=== PATIENT | male | born 1950 | race Caucasian/White ===

== ENCOUNTER → 2021-12-06 | Outpatient (CLI) | payer MEDICARE, BC, SELFPAY ==
--- NOTE | 2021-12-06 08:41 | STRESSREP_ITS ---
Stress Test Report Date: Procedure: Exercise tolerance test/imaging study Indications: Shortness of breath/dyspnea on exertion; chest pain; CAD Consent: Per the patient Procedure: The patient exercised on a Corby protocol for 6 minutes and 56 seconds completing Stage II and 56 seconds of Stage III achieving a peak heart rate of 200 bpm (135% predicted maximal heart rate) with a peak blood pressure 164/76 mmHg and a peak MET capacity of 9 METs. The baseline ECG demonstrated normal sinus rhythm. The peak exercise ECG demonstrated somatic/motion artifact with beat to beat nonspecific ST segment variability. There was an occasional PAC during exercise and a slightly irregular narrow complex tachycardia at peak recovery with subsequent spontaneous slowing appearing compatible with an underlying ectopic atrial rhythm/tachycardia with subsequent return to sinus rhythm with an occasional PVC. The functional capacity was considered good. There was no complaint of chest discomfort during exercise or recovery. The examination was discontinued secondary to dyspnea. Impression: 1. Technically adequate (percent predicted maximal heart rate greater than 85%) exercise tolerance test 2. Peak exercise ECG with somatic/motion artifact with beat to beat nonspecific ST segment variability 3. There was an occasional PAC during exercise and a slightly irregular narrow complex tachycardia peak recovery with subsequent spontaneous slowing appearing compatible with an underlying ectopic atrial rhythm/tachycardia with subsequent return to sinus rhythm with an occasional PVC 4. Nuclear images pending Myocardial perfusion imaging study: Technique: The patient was injected with 11.9 mCi of technetium 99m Cardiolite and subsequently rest SPECT Cardiolite nuclear imaging was obtained in the horizontal long, vertical long, and short axis views. The patient exercised on a Corby protocol for 6 minutes and 56 seconds completing Stage II and 56 seconds of Stage III achieving a peak heart rate of 200 bpm (135% predicted maximal heart rate) with a peak blood pressure 164/76 mmHg and a peak MET capacity of 9 METs. The patient was injected with 34.3 mCi of technetium 99m Cardiolite and subsequently stress SPECT Cardiolite nuclear imaging was obtained in the horizontal long, vertical long, and short axis views. A gated Cardiolite study at peak stress was obtained. Interpretation: Rest and stress SPECT Cardiolite nuclear imaging status post realignment, normalization, and attenuation correction, demonstrates an element of body motion during image acquisition and on the preattenuation correction images the appearance of relative uniform tracer uptake/myocardial perfusion. On the post attenuation correction images at rest there is appearance of a small area of diminished myocardial perfusion/tracer uptake in the distal anterior segments which appears to improve/normalize following stress. There is end systolic thickening and brightening. The gated Cardiolite study demonstrates myocardial thickening and inward wall motion. The reported LVEF is 73%. Impression: 1. Rest and stress SPECT Cardiolite nuclear imaging demonstrate the appearance of a small area of diminished myocardial perfusion/tracer uptake at rest which appears to improve/normalize following stress appearing compatible with an element of shifting soft tissue attenuation/artifact with no myocardial perfusion changes considered diagnostic for associated stress-induced myocardial ischemia. 2. The gated Cardiolite study reports an LVEF of 73%. This note was generated with [employer] software. It may contain incorrect words, spelling, and punctuation that were not noted in checking the note before signing.
== END | disposition home or self-care (01) ==
LOC: CVS 06:34
PROVIDERS: PCP Family Medicine; Referring Provider Family Medicine; Visit Provider Family Medicine
DX: R06.02 Shortness of breath (principal); R07.9 Chest pain, unspecified; I25.84 Coronary atherosclerosis due to calcified coronary lesion
CPT/HCPCS: 78452; 93017; A9500; A4216

== ENCOUNTER 2023-03-06 14:05 | Emergency (ER) | payer MEDICARE, BC, SELFPAY ==
[2023-03-06 14:08] VITALS: BP 171/98; PULSE 111; RESP 14; TEMP 36.8; O2SAT 97; BMI 26.0
--- NOTE | 2023-03-06 14:31 | EX.ED.GENINJ ---
HPI History of Present Illness Chief Complaint: Laceration Detail of Chief Complaint: Laceration occipital region due to fall Informant: patient Onset/Context/Timing Onset: Hours Mechanism/Context: Fall Quality of Pain: - (None) Location: Occiput Current Severity: Gone Maximum Severity: Mild Worsened by: Initial injury Relieved by: Not applicable Associated Symptoms Associated Symptoms: Negative for Parasthesias, Weakness, Loss of function, Inability to ambulate, Loss of consciousness or Amnesia Narrative Narrative: Patient is a 72-year-old male who was helping his elderly neighbor blow leaves. He lost his balance. He rolled down a hill and hit his head on a rock. He denies loss of conscious. He is not amnestic. He was not dazed. He is on no antithrombotic or anticoagulant. He denies double vision, blurred vision or loss of vision. He denies neck pain. He denies paresthesia, anesthesia or motor weakness. He denies cardiac or respiratory symptoms. He denies nausea or vomiting. Last tetanus was 2018. Tetanus Immunization: 5-10 years Prior similar symptoms: No Recent Illness/Hospitalization: No PFSH PFSH Home Medications ascorbic acid (vitamin C) 500 mg tablet (Vitamin C) 500 mg PO DAILY@0800 10/22/15 [History Last Taken 02/11/16 07:00] cholecalciferol (vitamin D3) 25 mcg (1,000 unit) tablet (Vitamin D3) 1,000 unit PO DAILY 10/22/15 [History Last Taken 02/11/16 07:00] loratadine 10 mg tablet (Allergy Relief (loratadine)) 10 mg PO DAILY PRN PRN Allergies 10/22/15 [History Last Taken 12/23/15] melatonin 10 mg sublingual tablet 10 mg PO QHS 10/22/15 [History Last Taken 12/23/15] luqclsog-jci-brpyv acid 0.4 mg-lycopene 300 mcg-lutein 250 mcg tablet (Centrum Silver) 1 ea PO DAILY 10/22/15 [History Last Taken 02/11/16 07:00] ondansetron HCl 8 mg tablet 8 mg PO Q8H PRN PRN Nausea ##20 10/26/15 [Rx Last Taken 10/29/15] acetaminophen 325 mg tablet (Tylenol) 650 mg (2 x 325 mg) PO Q6H PRN PRN Mild Pain (scale 0-3)/T>100.7 ##0 12/07/15 [Rx Last Taken Unknown] atorvastatin 20 mg tablet 20 mg PO QHS ##0 12/07/15 [Rx Last Taken 12/23/15] bisacodyl 5 mg tablet,delayed release 10 mg (2 x 5 mg) PO DAILY PRN PRN Constipation ##0 12/07/15 [Rx Last Taken Unknown] hydrocortisone 2.5 % topical cream with perineal applicator (Proctozone-HC) 1 applic RECTAL BID PRN PRN Pain ##0 12/07/15 [Rx Last Taken Unknown] niacin 500 mg tablet,extended release 500 mg PO QHS ##0 12/07/15 [Rx Last Taken 12/23/15] sennosides 8.6 mg tablet (Latonya-jamia) 1 tab PO BID ##0 01/25/16 [Rx Last Taken Unknown] omeprazole 20 mg capsule,delayed release 20 mg PO DAILY PRN PRN acid reflux 02/11/16 [History Last Taken Unknown] Allergy/AdvReac Type Severity Reaction Status Date / Time venom-wasp protein Allergy Severe Anaphylaxis Verified 03/06/23 14:08 Social History (Updated 03/06/23 @ 14:[address] Rizwan Sultana MD) household members: spouse Smoking Status: Former smoker ROS ROS ED Eyes Eyes: Denies blurry vision or change in vision Cardiovascular Cardiovascular: Denies chest pain Respiratory/Chest Respiratory/Chest: Denies dyspnea Musculoskeletal Musculoskeletal: Denies back pain or neck pain Integumentary Reports other Details: Scalp laceration Neurologic Neurologic: Denies headache(s), paresthesias or weakness Hematologic/Lymphatic Hematologic/Lymphatic: Denies easy bleeding or easy bruising EXAM Physical Exam Const Vital Signs: 03/06/23 14:08 Temperature 98.3 F Temperature Source Temporal Pulse Rate 111 H Respiratory Rate 14 Blood Pressure 171/98 H Blood Pressure Mean 122 Pulse Ox 97 Oxygen Delivery Method Room Air Positive well nourished and well developed Constitutional Narrative: Pleasant elderly male who is noted to have blood on his hands and neck due to scalp laceration. General Appearance ED: well developed and NAD HEENT Reports TM's clear trauma; Negative for tenderness Nose: Negative for septum abnormal Tympanic Membrane ED: Yes TM's clear Eyes EOMs intact bilaterally General Eye ED: Yes other Other Details: There is no subconjunctival hemorrhage noted. Neck full ROM Neck Narrative: There is no posterior midline pain. He has full range of motion without limitation. Resp normal respiratory effort and clear to auscultation bilaterally Cardio regular rhythm, S1 normal heart sound, S2 normal heart sound and no murmurs Rate: regular rate Back/Spine normal to inspection and no thoracic nor lumbar tenderness Extremity normal to inspection and full ROM Neuro oriented x3, CN's II-XII intact bilaterally, moves all extremities, no focal motor deficits, no sensory deficits noted and gait normal Neuro Narrative: There is no dysmetria. [place] Coma Scale: document GCS findings Spontaneous Obeys Commands Oriented 15 Sensorium / Orientation: alert Plantar Reflex: Downgoing: bilateral PROC Procedures Other Procedures Procedure(s): Patient has a 4.5 cm scalp laceration over the right occipital region. There is no palpable oppression. There is no clinical signs of basilar skull fracture. Patient was Nestabs with arms on lidocaine. Wound was irrigated with 200 cc of normal saline. The laceration was closed with leonard. A total of 7 leonard was placed. Patient had good cosmesis. He did have some discomfort even though he was anesthetized. MDM MDM MDM Narrative Medical decision making narrative: Since there was no loss of consciousness and patient is not on an antithrombotic or anticoagulant and he was not dazed per the [place] CT head rule imaging is not required. C-spine was cleared per Nexus criteria. Tetanus is up-to-date. Will repair his scalp laceration. Discharge Plan Triage Chief Complaint: Laceration ED Provider: Rizwan Sultana Dx/Rx/DC Orders Clinical Impression: Laceration of occipital region of scalp, Injury due to fall, Hx of Burkitt's lymphoma, Elevated blood pressure reading Instructions: ED Laceration Scalp Stitches or [place] Prescriptions: No Action ascorbic acid (vitamin C) [Vitamin C] 500 MG tablet 500 mg PO DAILY@0800 Patient Comments: supplement loratadine [Allergy Relief (loratadine)] 10 MG tablet 10 mg PO DAILY PRN PRN (Reason: Allergies) Patient Comments: allergies [place]-iit-KG-lycopen-lutein [Centrum Silver] 1 EACH tablet 1 ea PO DAILY Patient Comments: supplement cholecalciferol (vitamin D3) [Vitamin D3] 1,000 UNIT tablet 1,000 unit PO DAILY Patient Comments: supplement melatonin 10 MG tablet 10 mg PO QHS Patient Comments: sleep ondansetron HCl 8 MG tablet 8 mg PO Q8H PRN PRN (Reason: Nausea) Qty: 20 3RF Patient Comments: nausea acetaminophen [Tylenol] 325 MG tablet 650 mg PO Q6H PRN PRN (Reason: Mild Pain (scale 0-3)/T>100.7) Qty: 0 0RF Patient Comments: pain atorvastatin 20 MG tablet 20 mg PO QHS Qty: 0 0RF Patient Comments: cholesterol hydrocortisone [Proctozone-HC] 1 APPLIC cream with perineal applicator 1 applic RECTAL BID PRN PRN (Reason: Pain) Qty: 0 0RF Patient Comments: pain bisacodyl 5 MG tablet 10 mg PO DAILY PRN PRN (Reason: Constipation ) Qty: 0 0RF Patient Comments: constipation niacin 500 MG tablet 500 mg PO QHS Qty: 0 0RF Patient Comments: supplement sennosides [Latonya-jamia] 1 TABLET tablet 1 tab PO BID Qty: 0 0RF Patient Comments: stool softener omeprazole 20 MG capsule 20 mg PO DAILY PRN PRN (Reason: acid reflux) Patient Comments: acid reflux Primary Care Provider: Alexander Norman Referrals: Alexander Norman MD [Primary Care Provider] - 10 Day for suture removal Disposition Disposition: Home, Self Care
[2023-03-06] MEDS: Lidocaine 1% (20 ml mdv) 20 ML Vial INFILT (14:59)
== END 2023-03-06 15:11 | disposition home or self-care (01) ==
PROVIDERS: Emergency Provider Emergency Medicine; PCP Family Medicine; Visit Provider Emergency Medicine
DX: S01.01XA Laceration without foreign body of scalp, initial encounter (principal); R03.0 Elevated blood-pressure reading, without diagnosis of hypertension; Z87.891 Personal history of nicotine dependence; W19.XXXA Unspecified fall, initial encounter
CPT/HCPCS: 12002; 99283

== ENCOUNTER 2023-09-30 16:38 | Emergency (ER) | payer MEDICARE, BC, SELFPAY ==
[2023-09-30] VITALS (12 sets, daily range): BP systolic 92–123; BP diastolic 62–78; PULSE 93–124; RESP 16–26; TEMP 36.2–36.6; O2SAT 96–99; BMI 25.2
--- NOTE | 2023-09-30 16:55 | ED.VIS.CHEST ---
HPI History of Present Illness Chief Complaint: Chest Pain Detail of Chief Complaint: Chest tightness and near syncope Informant: patient and family Narrative Narrative: Patient presents to the emergency department with complaint of a near syncopal episode and some chest tightness. Patient states that he was outside had planted some shrubs and then dragged a plant across the driveway and when he stood up from doing so felt woozy and sweaty and felt like he was in a pass out. He describes some maybe some chest tightness that was very mild. states he had a similar episode about 2 days ago when he did not drink enough fluids. Patient currently feels much better. He denies dizziness currently and denies any chest discomfort currently. He denies recent travel or surgery. 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 Patient denies recent travel or surgery or history of PE or DVT. No significant family history of heart disease. Patient is prediabetic and does take a blood pressure medicine and cholesterol medicine. PFSH PFS Home Medications ?Medication ?Instructions ?Recorded ?Last Taken ?Type ascorbic acid (vitamin C) 500 mg 500 mg PO DAILY@0800 10/22/15 02/11/16 07:00 History tablet (Vitamin C) loratadine 10 mg tablet (Allergy 10 mg PO DAILY PRN PRN Allergies 10/22/15 12/23/15 History Relief (loratadine)) melatonin 10 mg sublingual tablet 10 mg PO QHS 10/22/15 12/23/15 History txmpiuar-pbz-erblq acid 0.4 1 ea PO DAILY 10/22/15 02/11/16 07:00 History mg-lycopene 300 mcg-lutein 250 mcg tablet (Centrum Silver) acetaminophen 325 mg tablet 650 mg (2 x 325 mg) PO Q6H PRN PRN 12/07/15 Unknown Rx (Tylenol) Mild Pain (scale 0-3)/T>100.7 ##0 atorvastatin 20 mg tablet 20 mg PO QHS ##0 12/07/15 12/23/15 Rx bisacodyl 5 mg tablet,delayed 10 mg (2 x 5 mg) PO DAILY PRN PRN 12/07/15 Unknown Rx release Constipation ##0 niacin 500 mg tablet,extended 500 mg PO QHS ##0 12/07/15 12/23/15 Rx release sennosides 8.6 mg tablet (Latonya-jamia) 1 tab PO BID ##0 01/25/16 Unknown Rx omeprazole 20 mg capsule,delayed 20 mg PO DAILY PRN PRN acid reflux 02/11/16 Unknown History release budesonide 3 mg 9 mg PO DAILY 09/30/23 Unknown History capsule,delayed,extended release finasteride 5 mg tablet 5 mg PO QHS 09/30/23 Unknown History tamsulosin 0.4 mg capsule 0.4 mg PO QHS 09/30/23 Unknown History Allergy/AdvReac Type Severity Reaction Status Date / Time venom-wasp protein Allergy Severe Anaphylaxis Verified 03/06/23 14:08 Social History (Updated 03/06/23 @ 14:[address] Rizwan Sultana MD) household members: spouse Smoking Status: Former smoker ROS ROS ED ROS Narrative Diaphoresis Review of Systems ROS Unobtainable: other Constitutional Constitutional ED: Reports lethargy; Denies chills, fever(s), sweats or weight loss Eyes Eyes: Denies blurry vision, change in vision or diplopia ENT ENT ED: Denies rhinorrhea or sore throat Cardiovascular Cardiovascular: Reports chest pain; Denies orthopnea or racing heartbeat Respiratory/Chest Respiratory/Chest: Denies cough, dyspnea, dyspnea on exertion, orthopnea or sputum Gastrointestinal Gastrointestinal: Denies abdominal pain, diarrhea, nausea or vomiting Genitourinary Genitourinary ED: Denies dysuria, hematuria or urinary frequency Musculoskeletal Musculoskeletal: Denies arthralgias, back pain, myalgias or neck pain Integumentary Denies abscess, Abrasions or rash Neurologic Neurologic: Reports other Details: Dizziness ; Denies headache(s) or weakness Psychiatric Psychiatric: Denies anxiety, depression or suicidal thoughts Endocrine Endocrinology: Denies polydipsia, polyphagia or polyuria Hematologic/Lymphatic Hematologic/Lymphatic: Denies easy bleeding, easy bruising or lymphadenopathy Allergic/Immunologic Allergic/Immunologic ED: Denies mouth swelling, tongue swelling or urticaria EXAM Physical Exam Const Vital Signs: 09/30/23 16:38 09/30/23 16:49 09/30/23 16:54 Temperature 97.8 F Temperature Source Oral Pulse Rate 124 H 119 H Pulse Rate [Sitting (for 1 minute prior to obtaining)] Pulse Rate [Standing (for 1 minute prior to obtaining)] Respiratory Rate 17 21 H Blood Pressure 99/62 Blood Pressure [Lying] Blood Pressure [Sitting (for 1 minute prior to obtaining)] Blood Pressure [Standing (for 1 minute prior to obtaining)] Blood Pressure Mean 74 Blood Pressure Mean [Lying] Blood Pressure Mean [Sitting (for 1 minute prior to obtaining)] Blood Pressure Mean [Standing (for 1 minute prior to obtaining)] Pulse Ox 97 98 Oxygen Delivery Method Room Air 09/30/23 17:00 09/30/23 17:15 09/30/23 17:30 Temperature Temperature Source Pulse Rate 111 H 108 H 97 Pulse Rate [Sitting (for 1 minute prior to obtaining)] Pulse Rate [Standing (for 1 minute prior to obtaining)] Respiratory Rate 18 17 16 Blood Pressure 99/65 113/69 107/71 Blood Pressure [Lying] Blood Pressure [Sitting (for 1 minute prior to obtaining)] Blood Pressure [Standing (for 1 minute prior to obtaining)] Blood Pressure Mean 76 84 83 Blood Pressure Mean [Lying] Blood Pressure Mean [Sitting (for 1 minute prior to obtaining)] Blood Pressure Mean [Standing (for 1 minute prior to obtaining)] Pulse Ox 99 97 Oxygen Delivery Method 09/30/23 17:34 09/30/23 17:36 09/30/23 17:37 Temperature Temperature Source Pulse Rate 97 101 H 109 H Pulse Rate [Sitting (for 1 minute prior to obtaining)] Pulse Rate [Standing (for 1 minute prior to obtaining)] Respiratory Rate 18 18 19 H Blood Pressure 118/67 108/68 92/68 Blood Pressure [Lying] Blood Pressure [Sitting (for 1 minute prior to obtaining)] Blood Pressure [Standing (for 1 minute prior to obtaining)] Blood Pressure Mean 81 80 76 Blood Pressure Mean [Lying] Blood Pressure Mean [Sitting (for 1 minute prior to obtaining)] Blood Pressure Mean [Standing (for 1 minute prior to obtaining)] Pulse Ox 96 98 97 Oxygen Delivery Method 09/30/23 17:38 09/30/23 17:45 09/30/23 18:00 Temperature Temperature Source Pulse Rate 100 93 Pulse Rate [Sitting (for 1 minute prior to obtaining)] 104 H Pulse Rate [Standing (for 1 minute prior to obtaining)] 107 H Respiratory Rate 26 H 24 H Blood Pressure 123/78 H 110/69 Blood Pressure [Lying] 118/67 Blood Pressure [Sitting (for 1 minute prior to obtaining)] 108/68 Blood Pressure [Standing (for 1 minute prior to obtaining)] 92/68 Blood Pressure Mean 89 82 Blood Pressure Mean [Lying] 84 Blood Pressure Mean [Sitting (for 1 minute prior to obtaining)] 81 Blood Pressure Mean [Standing (for 1 minute prior to obtaining)] 76 Pulse Ox 96 97 Oxygen Delivery Method 09/30/23 18:35 Temperature 97.2 F L Temperature Source Temporal Pulse Rate 94 Pulse Rate [Sitting (for 1 minute prior to obtaining)] Pulse Rate [Standing (for 1 minute prior to obtaining)] Respiratory Rate 16 Blood Pressure 112/71 Blood Pressure [Lying] Blood Pressure [Sitting (for 1 minute prior to obtaining)] Blood Pressure [Standing (for 1 minute prior to obtaining)] Blood Pressure Mean 84 Blood Pressure Mean [Lying] Blood Pressure Mean [Sitting (for 1 minute prior to obtaining)] Blood Pressure Mean [Standing (for 1 minute prior to obtaining)] Pulse Ox 96 Oxygen Delivery Method Room Air Positive well nourished and well developed General Appearance ED: well developed and NAD HEENT Reports TM's clear and moist mucous membranes normocephalic and atraumatic; Negative for trauma or tenderness Tympanic Membrane ED: Yes TM's clear Eyes PERRL and EOMs intact bilaterally General Eye ED: Negative for pale conjunctiva or scleral icterus Neck no lymphadenopathy, supple and no JVD General: Negative for tenderness Chest Wall inspection of chest normal and palpation of chest normal Chest: Negative for tenderness Resp normal respiratory effort and clear to auscultation bilaterally Effort and Inspection: Negative for respiratory distress or pain with movement Auscultation: Negative for rhonchi, wheezes or diminished lung sounds Cardio regular rate, regular rhythm, S1 normal heart sound, S2 normal heart sound and no murmurs Peripheral Pulses: pulses 2+ throughout GI normal to inspection, nondistended, normoactive bowel sounds, soft to palpation, non-tender, non-distended and no masses Back/Spine no CVA tenderness and no thoracic nor lumbar tenderness Extremity normal to inspection General Extremety ED: Negative for edema General Extremity: Negative for edema Neuro oriented x3, CN's II-XII intact bilaterally, no sensory deficits noted and gait normal Sensorium / Orientation: awake, alert, oriented to person, oriented to place and oriented to time Motor Exam: strength 5/5 throughout and strength abnormal Psych mental status grossly normal Skin no rashes or lesions noted and no wounds MDM MDM MDM Narrative Medical decision making narrative: Patient presents with complaint lightheadedness and some chest pressure. Symptoms started after standing up from a bending over to tie position. Had similar episode 3 days ago. Patient states that he is been out in the heat and working a little bit maybe not drinking enough fluids. IV line was established. Initial blood pressure was soft with systolic in the 90s. He was given a liter normal saline fluid bolus. CBC with differential showed an elevated white count of 14.2 which is chronic based on his prior lab results. Hemoglobin was 14.5 and platelet count of 460. Chemistries unremarkable. BUN was elevated 25 and creatinine 1.39 which is elevated compared to his prior numbers therefore I suspect some mild renal insufficiency. Initial troponin was 11. EKG obtained arrival showed a sinus rhythm with rate of 119 bpm with no acute ST segment changes. Given the low blood pressure and tachycardia I did obtain orthostatic vital signs and his blood pressure did drop by more than 20 points with standing but his heart rate really did not go up. He was given a second liter of normal saline. Delta troponin obtained was also normal. Symptoms completely resolved at this time and he feels well. I suspect based on his BUN and creatinine and tachycardia and low blood pressure he may have had some dehydration. Advised patient on pushing fluids. Advised to return if exertional dyspnea or exertional chest pain or condition should worsen anyway. He did have a D-dimer also that was negative when corrected for age. Lab Data Attestation: I reviewed the patient's lab results. Labs: Laboratory Results - last 24 hr 09/30/23 09/30/23 16:42 19:09 WBC 14.2 H RBC 4.71 Hgb 14.5 Hct 45.4 MCV 96.4 H MCH 30.8 MCHC 31.9 L RDW Std Deviation 43.9 RDW Coeff of Rosa M 12.5 Plt Count 460 H MPV 9.2 Immature Gran % (Auto) 0.600 Neut % (Auto) 75.7 H Lymph % (Auto) 13.1 L Mellette % (Auto) 10.1 H Eos % (Auto) 0.2 Baso % (Auto) 0.3 Absolute Neuts (auto) 10.7 H Absolute Lymphs (auto) 1.86 Nucleated RBC % 0 D-Dimer Quant (PE/DVT) 0.61 H* Sodium 136 Potassium 4.3 Chloride 101 Carbon Dioxide 22.0 Anion Gap 13 BUN 25 H Creatinine 1.39 H Estim Creat Clear Calc 47.33 Est GFR (MDRD) Af Amer 64 Est GFR (MDRD) Non-Af 53 L BUN/Creatinine Ratio 18.0 Glucose 204 H Calcium 10.0 Troponin I High Sens 11 16 Radiography Diagnostic Testing: Clinical Impression(s) from Imaging Studies Chest X-Ray 09/30/23 17:04 IMPRESSION: No radiographic evidence of acute cardiopulmonary disease. Electronically Signed: Barry Morel MD at 18:17 EDT , 1 view chest x-ray obtained interpreted by myself no evidence of infiltrate or pneumothorax or acute disease process. Radiology in agreement. EKG Initial EKG: Attestation: I personally reviewed and interpreted this EKG as follows: Comments: Sinus tachycardia with rate 119 bpm with occasional PACs. Discharge Plan Triage Chief Complaint: Chest Pain ED Provider: Efra Amaya Dx/Rx/DC Orders Clinical Impression: Dehydration, Hypotension, Chest pain Instructions: ED Chest Pain, Uncertain Cause, ED Dehydration (Adult) Prescriptions: No Action ascorbic acid (vitamin C) [Vitamin C] 500 MG tablet 500 mg PO DAILY@0800 Patient Comments: supplement loratadine [Allergy Relief (loratadine)] 10 MG tablet 10 mg PO DAILY PRN PRN (Reason: Allergies) Patient Comments: allergies Centrum Silver 1 EACH tablet 1 ea PO DAILY Patient Comments: supplement melatonin 10 MG tablet 10 mg PO QHS Patient Comments: sleep acetaminophen [Tylenol] 325 MG tablet 650 mg PO Q6H PRN PRN (Reason: Mild Pain (scale 0-3)/T>100.7) Qty: 0 0RF Patient Comments: pain atorvastatin 20 MG tablet 20 mg PO QHS Qty: 0 0RF Patient Comments: cholesterol bisacodyl 5 MG tablet 10 mg PO DAILY PRN PRN (Reason: Constipation ) Qty: 0 0RF Patient Comments: constipation niacin 500 MG tablet 500 mg PO QHS Qty: 0 0RF Patient Comments: supplement sennosides [Latonya-jamia] 1 TABLET tablet 1 tab PO BID Qty: 0 0RF Patient Comments: stool softener omeprazole 20 MG capsule 20 mg PO DAILY PRN PRN (Reason: acid reflux) Patient Comments: acid reflux tamsulosin 0.4 mg capsule 0.4 mg PO QHS budesonide 3 mg capsule,delayed,extend.release 9 mg PO DAILY finasteride 5 mg tablet 5 mg PO QHS Primary Care Provider: Alexander Norman Referrals: Alexander Norman MD [Primary Care Provider] - 3-5 Days Print Language: [place] Disposition Disposition: Home, Self Care
--- NOTE | 2023-09-30 16:56 | NURSING ---
NO OLD EKGS
[2023-09-30] MEDS: Aspirin 81 MG TAB.CHEW 324 MG PO (17:02)
--- NOTE | 2023-09-30 17:04 | RAD_ITS ---
INDICATION: chest pain EXAMINATION/TECHNIQUE: X-RAY - XR Chest 1 View COMPARISON: None. FINDINGS: LINES/DEVICES: None. LUNGS: No consolidation, edema or effusion. Small left basilar calcified granuloma. No pneumothorax. MEDIASTINUM AND CARDIOVASCULAR STRUCTURES: Cardiac silhouette not enlarged. Mild aortic atherosclerosis. BONES AND SOFT TISSUES: Unremarkable. RAD/Chest 1 View (Portable) IMPRESSION: No radiographic evidence of acute cardiopulmonary disease. Electronically Signed: Barry Morel MD at 18:17 EDT ,
[2023-09-30 17:05] LABS: Absolute Lymphocyte Count 1.86 X10^3/uL (0.83-4.51); Absolute Neutrophil Count 10.7 X10^3/uL (2.0-7.7); Basophil# 0.04 X10^3/uL; Basophil% 0.3 % (0-1); Eosinophil# 0.03 X10^3/uL; Eosinophils% 0.2 % (0-5); Hematocrit 45.4 % (40-54); Hemoglobin 14.5 g/dL (13.0-16.5); Lymphocyte # 1.86 X10^3/ul (0.83-4.51); Lymphocyte % 13.1 % (19-41); Mean Corp Hgb Conc 31.9 g/dL (32-36); Mean Corpuscular Hgb 30.8 pg (27.0-32.0); Mean Corpuscular Volume 96.4 fL (80-94); Mean Platelet Vol. 9.2 fl (6.2-12.0); Monocyte# 1.44 X10^3/uL; Monocyte% 10.1 % (0-10); NRBC Flagged by Analyzer 0 % (0-5); Neutrophil # 10.74 X10^3/uL (2.7-7.7); Neutrophil % 75.7 % (47-70); Platelet Count 460 K/mm3 (150-450); RBC Distribution Width CV 12.5 % (11.6-14.6); RBC Distribution Width SD 43.9 fl (35.1-43.9); Red Blood Count 4.71 M/mm3 (4.6-6.2); White Blood Count 14.2 K/mm3 (4.4-11.0)
[2023-09-30] MEDS: 0.9% Normal Saline (1000mL) 1,000 ML 999 ML IV ×2 (17:05→18:30)
[2023-09-30 17:18] LABS: D-Dimer Quantitative (DVT/PE) 0.61 FEU/ug/m (0.27-0.49)
--- NOTE | 2023-09-30 17:19 | ED.RN ---
Dr. Wallace made aware of critical d-dimer 0.61
[2023-09-30 17:31] LABS: Anion Gap 13 (5-15); BUN 25 mg/dL (7-18); Chloride 101 mmol/L (98-107); Creatinine, Serum 1.39 mg/dL (0.70-1.30); EST Glomerular Filtration Rate 53 mL/min (>60); Est Glom Filt Rate - Afr Amer 64 mL/min (>60); Estimated Creatinine Clearance 47.33 ml/min; Glucose 204 mg/dL (74-106); Potassium 4.3 mmol/L (3.5-5.1); Sodium Level 136 mmol/L (136-145); Troponin-I HS (w/2H Reflex) 11 pg/mL (3.0-78.0)
[2023-09-30 19:01] LABS: Reflex Troponin-HS? (from REC) Y
[2023-09-30 19:24] LABS: Troponin-I HS 16 pg/mL (3.0-78.0)
== END 2023-09-30 20:00 | disposition home or self-care (01) ==
PROVIDERS: Emergency Provider Emergency Medicine; PCP Family Medicine; Visit Provider Emergency Medicine
DX: E86.0 Dehydration (principal); I95.9 Hypotension, unspecified; R07.9 Chest pain, unspecified; R73.03 Prediabetes; Z79.899 Other long term (current) drug therapy; Z87.891 Personal history of nicotine dependence
CPT/HCPCS: 71045; 80048; 84484; 85025; 85379; 93005; 96360; 96361; 99285; J7030; A4216

== ENCOUNTER 2024-08-18 03:24 | Emergency (ER) | payer MEDICARE, BC, SELFPAY ==
[2024-08-18 03:24] VITALS: BP 188/95; PULSE 91; RESP 17; TEMP 36.6; O2SAT 98; BMI 26.3
--- NOTE | 2024-08-18 03:39 | CT_ITS ---
PROCEDURE: BRAIN/HEAD WITHOUT CONTRAST 08/18/2024 REASON FOR EXAM: DIZZINESS TECHNIQUE: Head CT without intravenous contrast. Coronal and Sagittal reconstruction series were provided. One or more dose reduction techniques were used (e.g., Automated exposure control, adjustment of the mA and/or kV according to patient size, use of iterative reconstruction technique. RADIATION DOSE SUMMARY: CTDlvol: 44 mGy DLP: 846 mGycm COMPARISON: None. FINDINGS: A few scattered hypodense foci in the periventricular and subcortical white matter suggestive of minimal chronic ischemic white matter disease. Normal size of the ventricles and extra-axial spaces for the patient's age. Normal basal ganglia and thalami. Normal brainstem. Normal cerebellum. There is no demonstrated extra-axial, intraparenchymal, or intraventricular hemorrhage. There are no findings of an acute ischemic infarction. Normal calvarium. There is no demonstrated fracture. Normal soft tissue structures. Normal visualized paranasal sinuses. CT/Brain/Head without Contrast IMPRESSION: No CT evidence of an acute brain abnormality. Reading Location: [place] [id number]
[2024-08-18 03:50] LABS: Absolute Lymphocyte Count 1.32 X10^3/uL (0.83-4.51); Basophil# 0.02 X10^3/uL; Basophil% 0.2 % (0-1); Eosinophil# 0.13 X10^3/uL; Eosinophils% 1.5 % (0-5); Hematocrit 43.6 % (40-54); Hemoglobin 14.9 g/dL (13.0-16.5); Lymphocyte # 1.32 X10^3/ul (0.83-4.51); Lymphocyte % 15.2 % (19-41); Mean Corp Hgb Conc 34.2 g/dL (32-36); Mean Corpuscular Volume 93.8 fL (80-94); Mean Platelet Vol. 8.9 fl (6.2-12.0); Monocyte# 1.14 X10^3/uL; Monocyte% 13.1 % (0-10); NRBC Flagged by Analyzer 0 % (0-5); Neutrophil # 6.04 X10^3/uL (2.7-7.7); Neutrophil % 69.5 % (47-70); Platelet Count 316 K/mm3 (150-450); RBC Distribution Width CV 12.5 % (11.6-14.6); RBC Distribution Width SD 43.1 fl (35.1-43.9); Red Blood Count 4.65 M/mm3 (4.6-6.2); White Blood Count 8.7 K/mm3 (4.4-11.0)
[2024-08-18] MEDS: Meclizine HCl 25 MG Tablet PO (03:50)
[2024-08-18] MEDS: 0.9% Normal Saline (1000mL) 1,000 ML 1000 ML IV (03:51)
--- NOTE | 2024-08-18 03:56 | EX.ED.DYSGE1 ---
HPI History of Present Illness Chief Complaint: Dizziness Informant: patient and spouse/S.O. Narrative Narrative: 73-year-old male presenting to the emergency room with dizziness. Patient states that he went to bed around 20 to 45 hours. He states he felt very slightly dizzy at that time. Dizziness to him when he is feeling somewhat intoxicated and that the room is spinning. States that he woke around 0230 hours and felt significantly more dizziness that he had to lean up against the wall to go down to the bathroom. States he felt clammy. He states he went back to the bedroom and lay down eventually went down to the kitchen and drank a couple bottles of water. He did work outside today. He denies any pain with the symptoms. He denies any headache. Denies any vision or speech changes. No vomiting diarrhea. Patient states he is never felt this way before. He states that he feels significantly better but still has a very small amount of dizziness. No new medications. Denies any arm or leg weakness/paresthesias. No recent trauma. [facility] Medical History Kidney stones Hyperlipemia GERD (gastroesophageal reflux disease) Home Medications ?Medication ?Instructions ?Recorded ?Last Taken ?Type ascorbic acid (vitamin C) 500 mg 500 mg PO DAILY@0800 10/22/15 02/11/16 07:00 History tablet (Vitamin C) loratadine 10 mg tablet (Allergy 10 mg PO DAILY PRN PRN Allergies 10/22/15 12/23/15 History Relief (loratadine)) melatonin 10 mg sublingual tablet 10 mg PO QHS 10/22/15 12/23/15 History kkqapzws-jyn-cbsvi acid 0.4 1 ea PO DAILY 10/22/15 02/11/16 07:00 History mg-lycopene 300 mcg-lutein 250 mcg tablet (Centrum Silver) acetaminophen 325 mg tablet 650 mg (2 x 325 mg) PO Q6H PRN PRN 12/07/15 Unknown Rx (Tylenol) Mild Pain (scale 0-3)/T>100.7 ##0 atorvastatin 20 mg tablet 20 mg PO QHS ##0 12/07/15 12/23/15 Rx bisacodyl 5 mg tablet,delayed 10 mg (2 x 5 mg) PO DAILY PRN PRN 12/07/15 Unknown Rx release Constipation ##0 niacin 500 mg tablet,extended 500 mg PO QHS ##0 12/07/15 12/23/15 Rx release sennosides 8.6 mg tablet (Latonya-jamia) 1 tab PO BID ##0 01/25/16 Unknown Rx omeprazole 20 mg capsule,delayed 20 mg PO DAILY PRN PRN acid reflux 02/11/16 Unknown History release budesonide 3 mg 9 mg PO DAILY 09/30/23 Unknown History capsule,delayed,extended release finasteride 5 mg tablet 5 mg PO QHS 09/30/23 Unknown History tamsulosin 0.4 mg capsule 0.4 mg PO QHS 09/30/23 Unknown History lisinopril 5 mg tablet 5 mg PO DAILY 08/18/24 Unknown History meclizine 25 mg tablet 25 mg PO TID PRN dizziness #10 tabs 08/18/24 Unknown Rx Allergy/AdvReac Type Severity Reaction Status Date / Time venom-wasp protein Allergy Severe Anaphylaxis Verified 08/18/24 03:24 Social History household members: spouse Smoking Status: Former smoker ROS ROS ED Constitutional Constitutional ED: Denies chills, fever(s) or weight loss Eyes Eyes: Denies change in vision or diplopia ENT ENT ED: Denies ear pain, rhinorrhea or sore throat Cardiovascular Cardiovascular: Denies chest pain, orthopnea, palpitations or racing heartbeat Respiratory/Chest Respiratory/Chest: Denies cough, dyspnea or orthopnea Gastrointestinal Gastrointestinal: Denies abdominal pain, diarrhea, nausea or vomiting Genitourinary Genitourinary ED: Denies dysuria, hematuria or urinary frequency Musculoskeletal Musculoskeletal: Denies arthralgias or myalgias Integumentary Reports other Details: Clammy ; Denies abscess or rash Neurologic Neurologic: Reports other Details: Dizziness (room spinning) ; Denies headache(s), paresthesias or weakness Psychiatric Psychiatric: Denies anxiety, depression, suicidal ideation or suicidal thoughts Endocrine Endocrinology: Denies polydipsia, polyphagia or polyuria Allergic/Immunologic Allergic/Immunologic ED: Denies mouth swelling, tongue swelling or urticaria EXAM Physical Exam Const Vital Signs: 08/18/24 03:24 08/18/24 04:24 08/18/24 05:00 Temperature 98 F Temperature Source Oral Pulse Rate 91 71 79 Respiratory Rate 17 19 H 17 Blood Pressure 188/95 H 156/89 H 156/81 H Blood Pressure Mean 126 111 106 Pulse Ox 98 95 98 Oxygen Delivery Method Room Air Room Air Room Air 08/18/24 06:00 Temperature Temperature Source Pulse Rate 85 Respiratory Rate 18 Blood Pressure 119/67 Blood Pressure Mean 84 Pulse Ox 98 Oxygen Delivery Method Room Air Positive well nourished and well developed General Appearance ED: well developed and NAD HEENT Reports normocephalic, head/scalp atraumatic and moist mucous membranes Eyes PERRL and EOMs intact bilaterally Eyes Narrative: No appreciable nystagmus Neck no lymphadenopathy, supple and no JVD Resp normal respiratory effort and clear to auscultation bilaterally Cardio regular rate, regular rhythm and no murmurs GI normal to inspection, nondistended, normoactive bowel sounds and non-tender Palpation: soft Back/Spine no CVA tenderness and normal ROM Extremity normal to inspection General Extremety ED: Negative for edema General Extremity: Negative for edema Neuro oriented x3, CN's II-XII intact bilaterally and no sensory deficits noted Neuro Narrative: I am not able to induce any nystagmus but the patient reports increased dizziness when he turns his head right and left. Sensorium / Orientation: alert Motor Exam: strength 5/5 throughout Psych mental status grossly normal Mood & Affect: Negative for depressed or tearful Skin no rashes or lesions noted and no wounds MDM MDM MDM Narrative Medical decision making narrative: Differential diagnosis includes but not limited to anemia dehydration electrolyte abnormalities peripheral vertigo central vertigo stroke malignancy acute coronary syndrome TIA Basic blood work is negative. 2 sets of cardiac enzymes are within normal limits. Normal electrolytes BUN is 16 creatinine 0.8 hemoglobin 14[address] of the brain was obtained read by radiology reviewed by myself this is negative for acute. EKG is a sinus rhythm. Patient received IV fluids and a dose of meclizine. Repeat examination finds the patient to be asymptomatic. Given that his dizziness is reproducible with head movement I do wonder if this could be BPV. Could also be a degree of clinical dehydration. As the patient is otherwise asymptomatic. His blood pressure has now normalized down to 119/67. It was high at home and high here initially but he also states that he was quite anxious about the situation. He is reasonable that the patient be discharged home. History & Record Review Discussion w/independent historian: Patient and Significant other Additional record(s) reviewed:: Prior outpatient record, Prior ED visit and Prior labs Lab Data Attestation: I reviewed the patient's lab results. Labs: Laboratory Results - last 24 hr 08/18/24 08/18/24 03:30 05:32 WBC 8.7 RBC 4.65 Hgb 14.9 Hct 43.6 MCV 93.8 MCH 32.0 MCHC 34.2 RDW Std Deviation 43.1 RDW Coeff of Rosa M 12.5 Plt Count 316 MPV 8.9 Immature Gran % (Auto) 0.500 Neut % (Auto) 69.5 Lymph % (Auto) 15.2 L Shelby % (Auto) 13.1 H Eos % (Auto) 1.5 Baso % (Auto) 0.2 Absolute Neuts (auto) 6.0 Absolute Lymphs (auto) 1.32 Nucleated RBC % 0 Sodium 136 Potassium 4.0 Chloride 99 Carbon Dioxide 24.4 Anion Gap 13 BUN 16 Creatinine 0.80 Estim Creat Clear Calc 81.01 Est GFR (MDRD) Non-Af 93 BUN/Creatinine Ratio 20.2 H Glucose 127 H Calcium 9.7 Troponin T High Sens 11 Troponin T Hi Sens 2 Hr 15 Radiography Diagnostic Testing: Clinical Impression(s) from Imaging Studies Brain CT 08/18/24 03:39 IMPRESSION: No CT evidence of an acute brain abnormality. Reading Location: [place] [id number] EKG Initial EKG: Attestation: I personally reviewed and interpreted this EKG as follows: Comments: Normal sinus rhythm ventricular to 78 bpm no concerning features of ACS are noted Prior EKG tracings: available for review Prior: Unchanged Discharge Plan Triage Chief Complaint: Dizziness ED Provider: Servando Walker Dx/Rx/DC Orders Clinical Impression: Dizziness, Hypertension Instructions: ED BPV Vertigo, ED Dizziness, Uncertain Cause Prescriptions: New meclizine 25 mg tablet 25 mg PO TID PRN (Reason: dizziness) Qty: 10 0RF No Action ascorbic acid (vitamin C) [Vitamin C] 500 MG tablet 500 mg PO DAILY@0800 Patient Comments: supplement loratadine [Allergy Relief (loratadine)] 10 MG tablet 10 mg PO DAILY PRN PRN (Reason: Allergies) Patient Comments: allergies Centrum Silver 1 EACH tablet 1 ea PO DAILY Patient Comments: supplement melatonin 10 MG tablet 10 mg PO QHS Patient Comments: sleep acetaminophen [Tylenol] 325 MG tablet 650 mg PO Q6H PRN PRN (Reason: Mild Pain (scale 0-3)/T>100.7) Qty: 0 0RF Patient Comments: pain atorvastatin 20 MG tablet 20 mg PO QHS Qty: 0 0RF Patient Comments: cholesterol bisacodyl 5 MG tablet 10 mg PO DAILY PRN PRN (Reason: Constipation ) Qty: 0 0RF Patient Comments: constipation niacin 500 MG tablet 500 mg PO QHS Qty: 0 0RF Patient Comments: supplement sennosides [Latonya-jamia] 1 TABLET tablet 1 tab PO BID Qty: 0 0RF Patient Comments: stool softener omeprazole 20 MG capsule 20 mg PO DAILY PRN PRN (Reason: acid reflux) Patient Comments: acid reflux tamsulosin 0.4 mg capsule 0.4 mg PO QHS budesonide 3 mg capsule,delayed,extend.release 9 mg PO DAILY finasteride 5 mg tablet 5 mg PO QHS lisinopril 5 mg tablet 5 mg PO DAILY Primary Care Provider: Alexander Norman Referrals: Alexander Norman MD [Primary Care Provider] - 1 Week Print Language: Belarusian Disposition Disposition: Home, Self Care NIHSS NIHSS 1a. Level of Consciousness: 0 - Alert; keenly responsive 1b. LOC Questions: 0 - Answers BOTH questions correctly 1c. LOC Commands: 0 - Performs BOTH tasks correctly 2. Best Gaze: 0 - Normal 3. Visual: 0 - No visual loss 4. Facial Palsy: 0 - Normal symmetrical movements 5a. Left Arm: 0 - No drift; arm holds 90 (or 45) degrees for full 10 seconds 5b. Right Arm: 0 - No drift; arm holds 90 (or 45) degrees for full 10 seconds 6a. Left Le - No drift; leg holds 30-degree position for full 5 seconds 6b. Right Le - No drift; leg holds 30-degree position for full 5 seconds 7. Limb Ataxia: 0 - Absent 8. Sensory: 0 - Normal; no sensory loss 9. Best Language: 0 - No aphasia; normal 10. Dysarthria: 0 - Normal 11. Extinction and Inattention: 0 - No abnormality Total: 0
[2024-08-18 04:07] LABS: Anion Gap 13 (5-15); BUN 16 mg/dL (4-19); BUN/Creat Ratio 20.2 RATIO (10-20); Calcium,Total 9.7 mg/dL (7.6-11.0); Carbon Dioxide 24.4 mmol/L (21.0-32.0); Chloride 99 mmol/L (98-108); EST Glomerular Filtration Rate 93 (>60); Estimated Creatinine Clearance 81.01 ml/min (50-250); Glucose 127 mg/dL (70-99); Sodium Level 136 mmol/L (133-145)
[2024-08-18 04:23] LABS: Troponin T High Sensitivity 11 ng/L (<=22)
[2024-08-18 04:24] VITALS: BP 156/89; PULSE 71; RESP 19; O2SAT 95
[2024-08-18 05:00] VITALS: BP 156/81; PULSE 79; RESP 17; O2SAT 98
[2024-08-18 06:00] VITALS: BP 119/67; PULSE 85; RESP 18; O2SAT 98
[2024-08-18 06:37] LABS: Troponin T High Sens 2 HR 15 ng/L (<=22)
[2024-08-18 06:52] VITALS: BP 131/76; PULSE 74; RESP 17; TEMP 36.9; O2SAT 99
== END 2024-08-18 06:53 | disposition home or self-care (01) ==
PROVIDERS: Emergency Provider Emergency Medicine; PCP Family Medicine; Visit Provider Emergency Medicine
DX: R42 Dizziness and giddiness (principal); I10 Essential (primary) hypertension; E78.5 Hyperlipidemia, unspecified; Z79.899 Other long term (current) drug therapy; Z87.891 Personal history of nicotine dependence
CPT/HCPCS: 70450; 80048; 84484; 85025; 93005; 96360; 99284; A4216